=== PATIENT | male | born 1950 | race Caucasian/White ===

== ENCOUNTER 2019-08-23 18:01 | Emergency (ER) | payer BC, MEDICARE ==
[2019-08-23 18:48] LABS: HEMATOCRIT 16.8 % (37.9-51.0); MEAN CORPUSCULAR HEMOGLOBIN 34.8 pg (27.0-33.4); MEAN CORPUSCULAR HGB CONC 36.5 g/dL (32.0-36.0); MEAN CORPUSCULAR VOLUME 95 fl (80-97); RED BLOOD COUNT 1.77 10^6/uL (4.35-5.55); WHITE BLOOD COUNT 8.6 10^3/uL (4.0-10.5)
[2019-08-23 19:01] LABS: APPEARANCE,URINE CLEAR; BILIRUBIN,URINE NEGATIVE (NEGATIVE); COLOR,URINE YELLOW; GLUCOSE, URINE NEGATIVE (NEGATIVE); KETONES,URINE TRACE mg/dL (NEGATIVE); LEUKOCYTE ESTERASE,URINE NEGATIVE (NEGATIVE); NITRITE,URINE NEGATIVE (NEGATIVE); PROTEIN,URINE NEGATIVE (NEGATIVE); URINE SPECIFIC GRAVITY 1.014; UROBILINOGEN,URINE NEGATIVE mg/dL (<2.0)
[2019-08-23 19:03] LABS: ALBUMIN 3.8 g/dL (3.5-5.0); ALCOHOL 44 mg/dL (NONE DETECTED); ALKALINE PHOSPHATASE 51 U/L (38-126); ASPARTATE AMINO TRANSFERASE 17 U/L (17-59); BILIRUBIN,DIRECT 0.4 mg/dL (0.0-0.4); BILIRUBIN,TOTAL 0.9 mg/dL (0.2-1.3); BLOOD UREA NITROGEN 12 mg/dL (7-20); CALCIUM 8.6 mg/dL (8.4-10.2); CARBON DIOXIDE 18 mmol/L (22-30); CHLORIDE 81 mmol/L (98-107); GLUCOSE 108 mg/dL (75-110); POTASSIUM 4.1 mmol/L (3.6-5.0); TOTAL PROTEIN 6.2 g/dL (6.3-8.2)
[2019-08-23 19:04] LABS: ANION GAP 15 (5-19)
[2019-08-23 19:09] LABS: PLATELET COUNT 95 10^3/uL (150-450)
[2019-08-23] MEDS ORDERED: NORMAL SALINE 1000 ML 1,000 ML IV ONE (19:10)
[2019-08-23 19:11] LABS: ABSOLUTE LYMPHOCYTES# (MANUAL) 0.7 10^3/uL (0.5-4.7); ABSOLUTE MONOCYTES # (MANUAL) 0.6 10^3/uL (0.1-1.4); BAND NEUTROPHILS % (MANUAL) 7 % (3-5); BASOPHILS % (MANUAL) 0 % (0-2); EOSINOPHILS % (MANUAL) 0 % (0-6); LYMPHOCYTES % (MANUAL) 8 % (13-45); MONOCYTES % (MANUAL) 7 % (3-13); SEGMENTED NEUTROPHILS % (MAN) 78 % (42-78); TOTAL CELLS COUNTED 100
[2019-08-23 19:14] LABS: ANISOCYTOSIS 3+; OVALOCYTES 1+; PLATELET COMMENT DECREASED; POIKILOCYTOSIS 1+; POLYCHROMASIA SLIGHT; TOXIC GRANULATION SLIGHT
[2019-08-23 19:16] LABS: URINE AMPHETAMINES SCREEN NEGATIVE; URINE BARBITURATES SCREEN NEGATIVE; URINE BENZODIAZEPINES SCREEN NEGATIVE; URINE COCAINE SCREEN NEGATIVE; URINE MARIJUANA (THC) SCREEN NEGATIVE; URINE METHADONE SCREEN NEGATIVE; URINE PHENCYCLIDINE SCREEN NEGATIVE
--- NOTE | 2019-08-23 19:21 | ER Document Report ---
ED General - General Chief Complaint: Weakness Stated Complaint: GENERAL WEAKNESS Time Seen by Provider: 08/23/19 19:08 Primary Care Provider: ANIRUDH PARTIDA MD [Primary Care Provider] - Follow up as needed Mode of Arrival: Ambulatory Information source: Patient, Friend - HPI Onset: Other - over the last several weeks Onset/Duration: Gradual Quality of pain: Achy Severity: Moderate Pain Level: 1 Associated symptoms: Weakness, Other - Dizziness Exacerbated by: Denies Relieved by: Denies Similar symptoms previously: No Recently seen / treated by doctor: No Notes: 69 year old male alcoholic brought to the ER for evaluation of dizziness, weakness, frequent falls over the last several weeks. The patient is not the best historian but he tells me his symptoms are worse with ambulation and standing. The patient has not seen a doctor in years but he he has been told he has in the past is Anemia. The patient says he has needed blood transfusion in the past due to Anemia. The patient drinks daily and he says he had 3-4 drinks the day of his ER visit. The patient denies fevers, chills, sweats, or other infectious symptoms. - Related Data Allergies/Adverse Reactions: No Known Allergies Allergy (Verified 08/23/19 18:45) Past Medical History - General Information source: Patient, Friend Cannot obtain history due to: Altered mental status - Social History Smoking Status: Current Every Day Smoker Frequency of alcohol use: Heavy - daily Drug Abuse: None Lives with: Alone Family History: Reviewed & Not Pertinent Patient has suicidal ideation: No Patient has homicidal ideation: No - Past Medical History Cardiac Medical History: Reports: None Pulmonary Medical History: Reports: None EENT Medical History: Reports: None Neurological Medical History: Reports: None Endocrine Medical History: Reports: None Renal/ Medical History: Reports: None Malignancy Medical History: Reports None GI Medical History: Reports: None Musculoskeletal Medical History: Reports None Skin Medical History: Reports None Psychiatric Medical History: Reports: None Review of Systems - Review of Systems Constitutional: Weakness EENT: No symptoms reported Cardiovascular: No symptoms reported Respiratory: No symptoms reported Gastrointestinal: No symptoms reported Genitourinary: No symptoms reported Male Genitourinary: No symptoms reported Musculoskeletal: Back pain, Joint pain - left shoulder pain Skin: Other - diffuse bruising, diffuse skin tears Hematologic/Lymphatic: Anemia Neurological/Psychological: Confusion, Weakness, Other - Dizziness -: Yes All other systems reviewed and negative Physical Exam - Vital signs Vitals: Resp Pulse Ox 20 97 08/23/19 18:04 08/23/19 18:04 - Notes Notes: GENERAL: Chronically ill appearing, covered in bruises, poorly groomed. HEAD: Atraumatic, normocephalic. EYES: Pupils equal round and reactive to light, extraocular movements intact, sclera anicteric, conjunctiva are normal. ENT: Nares patent, oropharynx clear without exudates. Moist mucous membranes. NECK: Normal range of motion, supple without lymphadenopathy or JVD. LUNGS: Breath sounds clear to auscultation bilaterally and equal. No wheezes rales or rhonchi. HEART: Regular rate and rhythm without murmurs, rubs or gallops. ABDOMEN: Soft, nontender, normoactive bowel sounds. No guarding, no rebound. No masses appreciated. EXTREMITIES: Normal range of motion, no pitting or edema. No clubbing or cyanosis. NEUROLOGICAL: Cranial nerves II through XII grossly intact. Left finger to nose Ataxia. Gait not tested in the ER but patient says he is unsteady on his feet. Normal speech, normal gait. PSYCH: Normal mood, normal affect. SKIN: Patient is covered in bruises and has diffuse skin breakdown. Warm and dry skin. Course - Re-evaluation Re-evalutation: 08/23/19 21:23 Patient was seen and evaluated by me as soon as he was placed in an ER room from triage/waiting room. Patient was brought back immediately after his labs in triaged showed a sodium of 114. Patient has not been seizing. Aside from a sodium of 114 work up in the ER showed he also is anemic with a hemoglobin 6.2 and he has a large right sided subdural hematoma with 7mm of midline shift. The patient has been falling frequently over the last few weeks. The patient is a daily alcohol drinker. It seems likely he fell and hit his head and then developed the low sodium but I cannot say for sure. [facility] was consulted for transfer as soon as the subdural with shift was found on CT. I initially spoke with the Trauma Surgeon who referred the case the Neurosurgery ICU. I am now waiting on a Neurosurgeon to call me back from [facility] who is in the OR. Will empirically treat patient with 1g of Keppra for seizure prophylaxis and will transfuse 2 units of blood. 08/24/19 01:07 [facility] Neurosurgery called me back and after reviewing the patient's images the neurosurgeon agreed that the subdural is likely chronic in nature and that the patient's medical issues (hyponatremia and anemia) should be addressed first. The patient was therefore admitted to a step down bed at [facility] by Dr. Robertson of the Hospitalist service. Patient is an alcoholic so will be on CIWA. - Vital Signs Vital signs: Temp Pulse Resp BP Pulse Ox 98.4 F 87 17 126/77 H 100 08/23/19 22:54 08/23/19 22:54 08/23/19 22:54 08/23/19 22:54 08/23/19 22:54 - Laboratory Result Diagrams: 08/23/19 18:06 08/23/19 18:06 Laboratory results interpreted by me: 08/23/19 08/23/19 08/23/19 18:06 18:06 18:06 RBC 1.77 L Hgb 6.2 L Hct 16.8 L MCH 34.8 H MCHC 36.5 H RDW 23.0 H Plt Count 95 L Band Neutrophils % 7 H Lymphocytes % (Manual) 8 L PT 17.1 H APTT 38.0 H Sodium 114.4 L* Chloride 81 L Carbon Dioxide 18 L Creatinine 0.43 L Total Protein 6.2 L Urine Ketones Crossmatch 08/23/19 08/23/19 08/23/19 18:13 20:20 20:50 RBC Hgb Hct MCH MCHC RDW Plt Count Band Neutrophils % Lymphocytes % (Manual) PT APTT Sodium Chloride Carbon Dioxide Creatinine Total Protein Urine Ketones TRACE H Crossmatch See Detail See Detail - Diagnostic Test Radiology reviewed: Image reviewed, Reports reviewed - EKG Interpretation by Me EKG shows normal: Sinus rhythm, [place], Intervals, ST-T Waves Rate: Normal Additional EKG results interpreted by me: 08/23/19 21:28 slightly widened QRS consistent with intraventricular conduction delay Critical Care Note - Critical Care Note Total time excluding time spent on procedures (mins): 35 Discharge - Discharge Clinical Impression: Hyponatremia, Subdural hematoma Anemia Qualifiers: Anemia type: unspecified type Qualified Code(s): D64.9 - Anemia, unspecified Condition: Stable Disposition: [facility] Admitting Provider: Dr. Robertson Referrals: ANIRUDH PARTIDA MD [Primary Care Provider] - Follow up as needed
[2019-08-23 19:26] LABS: HEMOGLOBIN 6.2 g/dL (13.5-17.0)
[2019-08-23] MEDS ORDERED: NORMAL SALINE 250 ML IV PRN ×2 (19:35)
[2019-08-23 19:50] LABS: INTERNATIONAL RATION (INR) 1.38; PROTHROMBIN TIME 17.1 SEC (11.4-15.4)
--- NOTE | 2019-08-23 20:06 | RADIOLOGY REPORT (SQ) ---
EXAM DESCRIPTION: CT HEAD WITHOUT COMPLETED DATE/TIME: 08/23/2019 7:50 pm REASON FOR STUDY: altered mental status. frequent falls COMPARISON: None. TECHNIQUE: Axial images acquired through the brain without intravenous contrast. Images reviewed wi th bone, brain and subdural windows. Additional sagittal and coronal reconstructions were generated. Images stored on PACS. All CT scanners at this facility use dose modulation, iterative reconstruction, and/or weight based d osing when appropriate to reduce radiation dose to as low as reasonably achievable (ALARA). [facility]: Dose Right [facility]: CareDose [facility]: Dose Right [facility]: Teradose 4D [facility]: Smart [employer] RADIATION DOSE: CT Rad equipment meets quality standard of care and radiation dose reduction techniq ues were employed. CTDIvol: 53.2 mGy. DLP: 1097 mGy-cm. mGy. LIMITATIONS: None. FINDINGS: VENTRICLES: Normal size and contour. CEREBRUM: No masses. No hemorrhage. No midline shift. No evidence for acute infarction. Normal gra y/white matter differentiation. No areas of low density in the white matter. CEREBELLUM: No masses. No hemorrhage. No alteration of density. No evidence for acute infarction. EXTRAAXIAL SPACES: Right side fluid collection that appears chronic. There appear appear to be some peripheral calcifications. There are 2 areas were this appears to be epidural. This is in the front al region and in the parietal region. 7 mm midline shift on image 22. ORBITS AND GLOBE: No intra- or extraconal masses. Normal contour of globe without masses. CALVARIUM: No fracture. PARANASAL SINUSES: No fluid or mucosal thickening. SOFT TISSUES: No mass or hematoma. OTHER: No other significant finding. IMPRESSION: Chronic appearing right-sided fluid collection that appears to be subdural with possible loculations. There are calcifications peripherally. There are areas of slightly increased density. Cannot exclude a chronic process with a slight acute component. EVIDENCE OF ACUTE STROKE: NO. COMMENT: Pertinent findings on the imaging study reported as a CRITICAL RESULT to JULIAN monaco t20:00 on 08/23/2019. Category of Critical Result: Acute on chronic subdural hematoma. Quality ID # 436: Final reports with documentation of one or more dose reduction techniques (e.g., Au tomated exposure control, adjustment of the mA and/or kV according to patient size, use of iterative reconstruction technique) TECHNICAL DOCUMENTATION: JOB ID: [id number] 2010 [employer]- All Rights Reserved Reading location - IP/workstation name: [email or web address]
--- NOTE | 2019-08-23 20:27 | RADIOLOGY REPORT (SQ) ---
EXAM DESCRIPTION: XR CHEST 1 VIEW COMPLETED DATE/TME: 08/23/2019 19:33 CLINICAL HISTORY: 69 years, Male, eval for pneumonia COMPARISON: None. NUMBER OF VIEWS: Single TECHNIQUE: AP portable upright LIMITATIONS: None. FINDINGS: 1953 hours Cardiomediastinal silhouette is enlarged. The lungs are grossly clear. No effusion. No pneumothorax. Right shoulder total prosthesis. Left shoulder severe arthropathy IMPRESSION: No active disease copyright 2010 [employer]- All Rights Reserved
[2019-08-23] MEDS ORDERED: LEVETIRACETAM 1000 MG/NACL-ISO 1,000 MG/100 ML RTUPB IV ONE (21:22)
[2019-08-23] MEDS: NORMAL SALINE 1000 ML 1,000 ML with POTASSIUM CHLORIDE 20 MEQ, MAGNESIUM SULFATE 8 MEQ,... IV SCH ×5 (21:22)
--- NOTE | 2019-08-23 22:22 | EKG REPORT ---
SEVERITY:- ABNORMAL ECG - SINUS RHYTHM NONSPECIFIC INTRAVENTRICULAR CONDUCTION DELAY : Confirmed by: Oumar Keys MD 23-Aug-2019 22:21:51
[2019-08-24 08:09] LABS: HEMATOCRIT 22.6 % (37.9-51.0); HEMOGLOBIN 8.1 g/dL (13.5-17.0); MEAN CORPUSCULAR HEMOGLOBIN 33.1 pg (27.0-33.4); MEAN CORPUSCULAR HGB CONC 35.9 g/dL (32.0-36.0); MEAN CORPUSCULAR VOLUME 92 fl (80-97); RED BLOOD COUNT 2.44 10^6/uL (4.35-5.55); RED CELL DISTRIBUTION WIDTH 21.2 % (11.5-14.0); WHITE BLOOD COUNT 5.1 10^3/uL (4.0-10.5)
[2019-08-24 08:24] LABS: PLATELET COUNT 69 10^3/uL (150-450)
[2019-08-24 08:26] LABS: ABSOLUTE LYMPHOCYTES# (MANUAL) 0.6 10^3/uL (0.5-4.7); ABSOLUTE MONOCYTES # (MANUAL) 0.2 10^3/uL (0.1-1.4); BAND NEUTROPHILS % (MANUAL) 5 % (3-5); BASOPHILS % (MANUAL) 0 % (0-2); EOSINOPHILS % (MANUAL) 0 % (0-6); LYMPHOCYTES % (MANUAL) 12 % (13-45); METAMYELOCYTES % (MANUAL) 1 % (0-1); MONOCYTES % (MANUAL) 3 % (3-13); SEGMENTED NEUTROPHILS % (MAN) 79 % (42-78); TOTAL CELLS COUNTED 100
[2019-08-24 08:29] LABS: ANISOCYTOSIS 3+; OVALOCYTES 2+; PLATELET COMMENT DECREASED; POIKILOCYTOSIS 1+; POLYCHROMASIA SLIGHT; TEAR DROP CELLS SLIGHT; TOXIC GRANULATION 2+
[2019-08-24 08:52] LABS: ALBUMIN 3.5 g/dL (3.5-5.0); ALKALINE PHOSPHATASE 43 U/L (38-126); ANION GAP 11 (5-19); ASPARTATE AMINO TRANSFERASE 14 U/L (17-59); BILIRUBIN,DIRECT 0.4 mg/dL (0.0-0.4); BILIRUBIN,TOTAL 1.6 mg/dL (0.2-1.3); BLOOD UREA NITROGEN 12 mg/dL (7-20); CALCIUM 8.4 mg/dL (8.4-10.2); CARBON DIOXIDE 22 mmol/L (22-30); CHLORIDE 94 mmol/L (98-107); GLUCOSE 111 mg/dL (75-110); TOTAL PROTEIN 5.8 g/dL (6.3-8.2)
--- NOTE | 2019-08-24 18:38 | ER Document Report ---
Doctor's Note Notes: 08/24/19 18:37 Patient reexamined approximate 6:30 PM. Patient is resting comfortably in the room watching TV and eating dinner. He states he has no complaints at this time. Patient is awake alert and conversant. He is in no distress. Skin is warm and dry. Heart is regular rate and rhythm. Lungs are clear to auscult ation.
[2019-08-24] MEDS: NORMAL SALINE 1000 ML 1,000 ML with POTASSIUM CHLORIDE 20 MEQ, MAGNESIUM SULFATE 8 MEQ,... IV SCH ×5 (19:32)
[2019-08-25 06:54] LABS: ALBUMIN 3.1 g/dL (3.5-5.0); ALKALINE PHOSPHATASE 136 U/L (38-126); ANION GAP 6 (5-19); ASPARTATE AMINO TRANSFERASE 54 U/L (17-59); BILIRUBIN,DIRECT 0.8 mg/dL (0.0-0.4); BILIRUBIN,TOTAL 1.9 mg/dL (0.2-1.3); BLOOD UREA NITROGEN 11 mg/dL (7-20); CALCIUM 7.9 mg/dL (8.4-10.2); CARBON DIOXIDE 21 mmol/L (22-30); CHLORIDE 100 mmol/L (98-107); GLUCOSE 103 mg/dL (75-110); TOTAL PROTEIN 5.1 g/dL (6.3-8.2)
[2019-08-25 08:15] LABS: HEMATOCRIT 22.7 % (37.9-51.0); HEMOGLOBIN 8.2 g/dL (13.5-17.0); MEAN CORPUSCULAR HEMOGLOBIN 33.1 pg (27.0-33.4); MEAN CORPUSCULAR VOLUME 92 fl (80-97); RED BLOOD COUNT 2.47 10^6/uL (4.35-5.55); RED CELL DISTRIBUTION WIDTH 21.4 % (11.5-14.0); WHITE BLOOD COUNT 4.9 10^3/uL (4.0-10.5)
[2019-08-25 08:44] LABS: PLATELET COUNT 66 10^3/uL (150-450)
[2019-08-25 08:47] LABS: ABSOLUTE LYMPHOCYTES# (MANUAL) 0.5 10^3/uL (0.5-4.7); ABSOLUTE MONOCYTES # (MANUAL) 0.3 10^3/uL (0.1-1.4); BAND NEUTROPHILS % (MANUAL) 5 % (3-5); BASOPHILS % (MANUAL) 0 % (0-2); EOSINOPHILS % (MANUAL) 0 % (0-6); LYMPHOCYTES % (MANUAL) 7 % (13-45); METAMYELOCYTES % (MANUAL) 2 % (0-1); MONOCYTES % (MANUAL) 6 % (3-13); NUCLEATED RED BLOOD CELLS 1 /100 WBC (0); SEGMENTED NEUTROPHILS % (MAN) 76 % (42-78); TOTAL CELLS COUNTED 100
[2019-08-25 08:48] LABS: ANISOCYTOSIS 3+; OVALOCYTES 2+; PLATELET COMMENT DECREASED; POIKILOCYTOSIS 1+; POLYCHROMASIA 1+; SCHISTOCYTES SLIGHT; TOXIC GRANULATION 1+; TOXIC VACUOLATION PRESENT
[2019-08-25 08:49] LABS: MYELOCYTES % (MANUAL) 1 % (0)
--- NOTE | 2019-08-25 11:29 | ER Document Report ---
Doctor's Note Notes: 08/25/19 11:28 This man is seen for follow-up today eating and drinking well with stable vital signs. He has very minimal tremor present. His sodium is come up to 127. He remains on the transfer list provided but still does not have a bed. I spoke with the patient and his family. Plan at this time is to ask the hospitalist service to consult for admission here until bed is available and to have them manage his ongoing hyponatremia.
[2019-08-25] MEDS ORDERED: HYDRALAZINE HCL INJ/PF 20 MG/1 ML SDV IV PRN (12:39)
[2019-08-25] MEDS ORDERED: LORAZEPAM INJ 2 MG/1 ML VIAL IV PRN (12:40)
[2019-08-25] MEDS: LISINOPRIL 5 MG TABLET PO SCH (13:18)
[2019-08-25] MEDS ORDERED: GUAIFENESIN SYRP 200 MG/10 ML UDC PO PRN (13:24)
[2019-08-25] MEDS ORDERED: LEVALBUTEROL HCL NEB 1.25 MG/3 ML AMPUL NEB PRN (13:24)
--- NOTE | 2019-08-25 13:43 | PDOC CONSULTATION ---
Consultation Consult Date: 08/25/19 Attending physician:: BARRIE LOREDO Provider Consulted: GINGER NIXON History of Present Illness Admission Date/PCP: ANIRUDH PARTIDA MD Patient complains of: Fall with head injury History of Present Illness: DOT L[place]IS is a 69 year old male with a past medical history significant for alcohol dependence with continuous use, prior head injury (evaluated at [facility], [facility]; requesting records), frequent falls, and depression. Patient presented to the emergency department on 08/23/2019 with report of increased frequency of falls with head injury. Evaluation by the emergency department provider revealed anemia with a hemoglobin of 6.2 (now status post 2 units PRBC), persistent thrombocytopenia, INR 1.38, hyponatremia with a sodium of 114 (has trended up to 127), negative urinalysis, negative UDS, serum EtOH 44. EKG demonstrated NSR. CXR benign. Notably, head CT revealed a subdural hematoma with a 7 mm midline shift with acute on chronic appearance per radiologist report. Patient's family members note that since his fall he has had personality changes (increased agitation, flat affect, and confusion). Motor/sensory appears to be intact. Patient is noted to be alert and oriented x4. Though, with flat affect, frequent appearance of disengaging from conversation and and needing to be recalled back to the conversation. He does follow simple commands but with sluggish answers and responses. Patient is currently awaiting transfer to [facility]. The hospitalist team has been requested to consult for management of anticipated alcohol withdrawal and hyponatremia while awaiting transfer. Past Medical History Cardiac Medical History: Reports: None Pulmonary Medical History: Reports: None EENT Medical History: Reports: None Neurological Medical History: Reports: Other - Prior TBI Endocrine Medical History: Reports: None Renal/ Medical History: Reports: None Malignancy Medical History: Reports: None GI Medical History: Reports: None Musculoskeltal Medical History: Reports: None Skin Medical History: Reports: None Psychiatric Medical History: Reports: Alcohol Dependency, Depression Traumatic Medical History: Reports: None Hematology: Reports: Anemia Infectious Medical History: Reports: None Past Surgical History Past Surgical History: Reports: None Social History Information Source: Patient, Relative Lives with: Alone Smoking Status: Never Smoker Frequency of Alcohol Use: Heavy Hx Recreational Drug Use: No Drugs: None Hx Prescription Drug Abuse: No Family History Family History: Reviewed & Not Pertinent Parental Family History Reviewed: Yes Children Family History Reviewed: Yes Sibling(s) Family History Reviewed.: Yes Medication/Allergy Allergies/Adverse Reactions: No Known Allergies Allergy (Verified 08/23/19 18:45) Review of Systems Constitutional: ABSENT: chills, fever(s), headache(s), weight gain, weight loss Eyes: ABSENT: visual disturbances Ears: ABSENT: hearing changes Cardiovascular: ABSENT: chest pain, dyspnea on exertion, edema, orthropnea, palpitations Respiratory: PRESENT: cough. ABSENT: hemoptysis Gastrointestinal: ABSENT: abdominal pain, constipation, diarrhea, hematemesis, hematochezia, nausea, vomiting Genitourinary: ABSENT: dysuria, hematuria Musculoskeletal: ABSENT: joint swelling Integumentary: ABSENT: rash, wounds Neurological: PRESENT: frequent falls, lack of coordination, memory loss, weakness. ABSENT: abnormal gait, abnormal speech, confusion, dizziness, focal weakness, syncope Psychiatric: PRESENT: depression. ABSENT: anxiety, homidical ideation, suicidal ideation Endocrine: ABSENT: cold intolerance, heat intolerance, polydipsia, polyuria Hematologic/Lymphatic: ABSENT: easy bleeding, easy bruising Physical Exam Vital Signs: Temp Pulse Resp BP Pulse Ox 97.8 F 73 18 134/69 H 100 08/25/19 08:01 08/25/19 00:11 08/25/19 13:01 08/25/19 13:01 08/25/19 13:01 Intake & Output 08/24/19 08/25/19 08/26/19 06:59 06:59 06:59 Intake Total 2773 1623 Output Total 1000 450 Balance 1773 1173 Weight 72.575 kg General appearance: PRESENT: no acute distress, cooperative, well-developed, well-nourished Head exam: PRESENT: normocephalic, other - L-shaped left forehead laceration measuring 1 x 0.5 cm. Ecchymosis over left brow. Eye exam: PRESENT: conjunctiva pink, EOMI, PERRLA. ABSENT: scleral icterus Ear exam: PRESENT: normal external ear exam Mouth exam: PRESENT: moist, tongue midline Neck exam: ABSENT: carotid bruit, JVD, lymphadenopathy, thyromegaly Respiratory exam: PRESENT: rhonchi, symmetrical, unlabored. ABSENT: rales, wheezes Cardiovascular exam: PRESENT: RRR, +S1, +S2. ABSENT: diastolic murmur, rubs, systolic murmur Pulses: PRESENT: normal dorsalis pedis pul Vascular exam: PRESENT: normal capillary refill GI/Abdominal exam: PRESENT: normal bowel sounds, soft. ABSENT: distended, guarding, mass, organolmegaly, rebound, tenderness Rectal exam: PRESENT: deferred Extremities exam: ABSENT: calf tenderness, clubbing, full ROM - Limited abduction left arm (chronic), pedal edema Neurological exam: PRESENT: alert, awake, oriented to person, oriented to place, oriented to time, oriented to situation, CN II-XII grossly intact, other - Sluggish verbal responses and physical movements. Left glass technologist 4/5.. ABSENT: motor sensory deficit Psychiatric exam: PRESENT: depressed, flat affect. ABSENT: homicidal ideation, suicidal ideation Skin exam: PRESENT: dry, warm. ABSENT: cyanosis, rash Results Laboratory Results: 08/25/19 08:00 08/25/19 06:27 08/25/19 08/25/19 08/25/19 06:27 06:27 08:00 WBC Cancelled 4.9 RBC Cancelled 2.47 L Hgb Cancelled 8.2 L Hct Cancelled 22.7 L MCV Cancelled 92 MCH Cancelled 33.1 MCHC Cancelled 36.0 RDW Cancelled 21.4 H Plt Count Cancelled 66 L Seg Neutrophils % Cancelled Not Reportable Sodium 127.1 L Potassium 4.0 Chloride 100 Carbon Dioxide 21 L Anion Gap 6 BUN 11 Creatinine 0.39 L Est GFR ( Amer) > 60 Glucose 103 Calcium 7.9 L Total Bilirubin 1.9 H AST 54 Alkaline Phosphatase 136 H Total Protein 5.1 L Albumin 3.1 L 08/23/19 18:06 Creatine Kinase 47 L Impressions: Head CT 08/23/19 19:21 IMPRESSION: Chronic appearing right-sided fluid collection that appears to be subdural with possible loculations. There are calcifications peripherally. There are areas of slightly increased density. Cannot exclude a chronic process with a slight acute component. EVIDENCE OF ACUTE STROKE: NO. Chest X-Ray 08/23/19 19:33 IMPRESSION: No active disease copyright 2010 [facility]- All Rights Reserved Assessment and Plan - Diagnosis (1) Subdural hematoma Is this a current diagnosis for this admission?: Yes Plan: Acute on chronic; prior history of TBI resulting in admission to [facility]. Prior medical records have been requested. [facility]; on wait list for room assignment. Continue Keppra 500 mg twice daily. Fall, seizure precautions. (2) Alcohol dependence Qualifiers: Substance use status: with intoxication Complication of substance-induced condition: uncomplicated Qualified Code(s): F10.220 - Alcohol dependence with intoxication, uncomplicated Is this a current diagnosis for this admission?: Yes Plan: Patient admitted with a serum alcohol of 44. Admits to drinking 3-4 beers nightly and hard liquor of unknown quantity. Patient reports he has been a heavy drinker for several years. He denies prior difficulty with alcohol withdrawal or seizures. Cessation encouraged. Daily multivitamin, thiamine, and folic acid supplementation. Valium 2 mg p.o. every 6 hours. IV Ativan as needed anxiety, agitation, withdrawal symptoms. Fall, seizure, aspiration precautions. (3) Anemia Qualifiers: Anemia type: unspecified type Qualified Code(s): D64.9 - Anemia, unspecified Is this a current diagnosis for this admission?: Yes Plan: Patient received 2 units PRBC Hgb now stable at 8.2. Continue to monitor and transfuse as necessary. Holding DVT prophylaxis secondary to subdural hematoma and thrombocytopenia. (4) Hyponatremia Is this a current diagnosis for this admission?: Yes Plan: Trending up. Free water fluid restriction of 1.5 L daily. Liberalize dietary sodium intake; regular diet. Serial chemistries. Seizure precautions. (5) Bronchitis Is this a current diagnosis for this admission?: Yes Plan: Patient reports that he was being treated for bronchitis prior to admission. He states that he took the first dose of the Z-Anthony. He He is noted to have slight rhonchi on exam. Maintaining oxygen saturations on room air. We will complete course of azithromycin. As needed Xopenex. Supplemental oxygen as needed maintain saturations. Pulmonary toilet with incentive spirometer. - Time Time Spent with patient: 35 or more minutes Medications reviewed and adjusted accordingly: Yes [facility]tic[facility]ated [facility] Within: when bed available
[2019-08-25 13:49] LABS: INTERNATIONAL RATION (INR) 1.33; PROTHROMBIN TIME 16.6 SEC (11.4-15.4)
--- NOTE | 2019-08-25 14:22 | RADIOLOGY REPORT (SQ) ---
EXAM DESCRIPTION: CT HEAD WITHOUT COMPLETED DATE/TIME: 08/25/2019 1:58 pm REASON FOR STUDY: f/u subdural hematoma R53.1 WEAKNESS S06.5X9A TRAUM SUBDR HEM W LOC OF UNSP DURA TION, INIT T14.8XXA OTHER INJURY OF UNSPECIFIED BODY REGION, INITIAL EN COMPARISON: 08/23/2019. TECHNIQUE: Axial images acquired through the brain without intravenous contrast. Images reviewed wi th bone, brain and subdural windows. Additional sagittal and coronal reconstructions were generated. Images stored on PACS. All CT scanners at this facility use dose modulation, iterative reconstruction, and/or weight based d osing when appropriate to reduce radiation dose to as low as reasonably achievable (ALARA). [facility]: Dose Right [facility]: CareDose [facility]: Dose Right [facility]: Teradose 4D [facility]: [employer] RADIATION DOSE: CT Rad equipment meets quality standard of care and radiation dose reduction techniq ues were employed. CTDIvol: 53.2 mGy. DLP: 1070 mGy-cm. mGy. LIMITATIONS: None. FINDINGS: VENTRICLES: Prominent. CEREBRUM: No masses. No hemorrhage. No midline shift. Areas of low density in the white matter mos t likely due to chronic micro-vascular ischemic change. No evidence for acute infarction. CEREBELLUM: No masses. No hemorrhage. No alteration of density. No evidence for acute infarction. EXTRAAXIAL SPACES: Again seen is mixed density fluid collection overlying the right cerebral hemisphe re. Scattered peripheral calcification. Overall in appearance. Mild midline shift unchanged. ORBITS AND GLOBE: No intra- or extraconal masses. Normal contour of globe without masses. CALVARIUM: No fracture. PARANASAL SINUSES: No fluid or mucosal thickening. SOFT TISSUES: No mass or hematoma. OTHER: No other significant finding. IMPRESSION: NO CHANGE IN THE MIXED DENSITY FLUID COLLECTION OVERLYING THE RIGHT CEREBRAL HEMISPHERE WITH PERIPHERAL CALCIFICATION. MILD CHRONIC CHANGES OF ATROPHY AND MICROVASCULAR ISCHEMIA. NO ACUTE PROCESS. EVIDENCE OF ACUTE STROKE: NO. TECHNICAL DOCUMENTATION: JOB ID: [id number] Quality ID # [id number]: Final reports with documentation of one or more dose reduction techniques (e.g., Au tomated exposure control, adjustment of the mA and/or kV according to patient size, use of iterative reconstruction technique) 2010 [employer]- All Rights Reserved Reading location - IP/workstation name: [email or web address]
[2019-08-25] MEDS: AZITHROMYCIN 250 MG TABLET PO SCH (14:41)
[2019-08-25 16:35] LABS: ANION GAP 11 (5-19); BLOOD UREA NITROGEN 12 mg/dL (7-20); CALCIUM 8.1 mg/dL (8.4-10.2); CARBON DIOXIDE 18 mmol/L (22-30); CHLORIDE 97 mmol/L (98-107); GLUCOSE 105 mg/dL (75-110)
[2019-08-26] MEDS: LEVETIRACETAM 500 MG TABLET PO SCH ×2 (00:49→10:24)
[2019-08-26 07:10] LABS: HEMATOCRIT 25.4 % (37.9-51.0); MEAN CORPUSCULAR HEMOGLOBIN 33.2 pg (27.0-33.4); MEAN CORPUSCULAR HGB CONC 35.4 g/dL (32.0-36.0); MEAN CORPUSCULAR VOLUME 94 fl (80-97); RED BLOOD COUNT 2.72 10^6/uL (4.35-5.55); WHITE BLOOD COUNT 6.8 10^3/uL (4.0-10.5)
[2019-08-26 07:30] LABS: ANION GAP 10 (5-19); BLOOD UREA NITROGEN 11 mg/dL (7-20); CALCIUM 8.2 mg/dL (8.4-10.2); CARBON DIOXIDE 21 mmol/L (22-30); CHLORIDE 96 mmol/L (98-107); GLUCOSE 100 mg/dL (75-110); POTASSIUM 3.9 mmol/L (3.6-5.0)
[2019-08-26 08:00] LABS: PLATELET COUNT 69 10^3/uL (150-450)
[2019-08-26] MEDS ORDERED: FOLIC ACID 1 MG TABLET PO SCH (10:00)
[2019-08-26] MEDS ORDERED: THIAMINE HCL 100 MG TABLET PO SCH (10:00)
[2019-08-26] MEDS: AZITHROMYCIN 250 MG TABLET PO SCH (10:24)
[2019-08-26] MEDS: LISINOPRIL 5 MG TABLET PO SCH (10:27)
[2019-08-26 11:37] LABS: HEPATITS B SURFACE ANTIGEN Negative (Negative)
[2019-08-26 12:38] LABS: HEPATITIS C VIRUS ANTIBODY <0.1 s/co ratio (0.0-0.9)
--- NOTE | 2019-08-26 12:58 | PDOC PROGRESS REPORT ---
Subjective Progress Note for:: 08/26/19 Subjective:: DOT LOUIS is a 69 year old male with a past medical history significant for alcohol dependence with continuous use, prior head injury, frequent falls, and depression who presented to the emergency department on 08/23/2019 with complaint of frequent falls, alcohol intoxication, and head injury. The hospital service was consulted on 08/25/2019 for management of hyponatremia and alcohol withdrawal. Patient was seen on morning rounds with his family members present. He was found resting in bed, comfortably, on room air. He is oriented to self, though with delayed answer. He states the year is 2011, [place], knows that he is in a hospital but is unable to state the city. This is slightly more confused with increased delay in responses from yesterday. However, he otherwise appears more alert and engaged in conversation and interactions with me. He denies fever, chills, chest pain, palpitations, dyspnea, cough, abdominal pain, nausea vomiting diarrhea. He further denies visual and auditory hallucinations, sweats, anxiety and headaches. Patient has no questions or concerns at this time. Reviewed patient's CT results and records received from [facility] with patient and family. They remain interested and transfer to [facility] for neurology evaluation. No concerns per nursing. Reason For Visit: GENERAL WEAKNESS Physical Exam Vital Signs: Temp Pulse Resp BP Pulse Ox 98.1 F 73 18 104/61 99 08/26/19 06:28 08/25/19 00:11 08/26/19 11:01 08/26/19 10:23 08/26/19 11:01 Intake & Output 08/25/19 08/26/19 08/27/19 06:59 06:59 06:59 Intake Total 1623 Output Total 450 Balance 1173 General appearance: PRESENT: no acute distress, cooperative, well-developed, well-nourished Head exam: PRESENT: normocephalic, other - L-shaped left forehead laceration measuring 1 x 0.5 cm. Ecchymosis over left brow.. ABSENT: atraumatic Eye exam: PRESENT: conjunctiva pink, EOMI, PERRLA. ABSENT: scleral icterus Ear exam: PRESENT: normal external ear exam Mouth exam: PRESENT: moist, tongue midline Respiratory exam: PRESENT: clear to auscultation kat, symmetrical, unlabored. ABSENT: rales, rhonchi, wheezes Cardiovascular exam: PRESENT: RRR, +S1, +S2. ABSENT: diastolic murmur, rubs, systolic murmur Vascular exam: PRESENT: normal capillary refill Extremities exam: ABSENT: calf tenderness, clubbing, full ROM - Limited abduction left arm (chronic), pedal edema Musculoskeletal exam: PRESENT: ambulatory Neurological exam: PRESENT: alert, awake, oriented to person, oriented to place - limited, oriented to situation, CN II-XII grossly intact, other - Increased disorientation from yesterday; improved alertness. Remains sluggish w/ movements and responses.. ABSENT: oriented to time, motor sensory deficit Psychiatric exam: PRESENT: appropriate affect, normal mood. ABSENT: homicidal ideation, suicidal ideation Skin exam: PRESENT: dry, warm, other - numerous scattered abrasions and skin tears. ABSENT: cyanosis, intact, rash Results Laboratory Results: 08/26/19 06:38 08/26/19 06:38 08/25/19 08/25/19 08/26/19 13:33 16:00 06:38 WBC RBC Hgb Hct MCV MCH MCHC RDW Plt Count Sodium 125.9 L 127.1 L Potassium 4.0 3.9 Chloride 97 L 96 L Carbon Dioxide 18 L 21 L Anion Gap 11 10 BUN 12 11 Creatinine 0.40 L 0.41 L Est GFR ( Amer) > 60 > 60 Glucose 105 100 Calcium 8.1 L 8.2 L Ammonia < 8.7 L 08/26/19 06:38 WBC 6.8 RBC 2.72 L Hgb 9.0 L Hct 25.4 L MCV 94 MCH 33.2 MCHC 35.4 RDW 22.0 H Plt Count 69 L Sodium Potassium Chloride Carbon Dioxide Anion Gap BUN Creatinine Est GFR ( Amer) Glucose Calcium Ammonia 08/23/19 18:06 Creatine Kinase 47 L Impressions: Chest X-Ray 08/23/19 19:33 IMPRESSION: No active disease copyright 2011 [employer]- All Rights Reserved Head CT 08/25/19 00:00 IMPRESSION: NO CHANGE IN THE MIXED DENSITY FLUID COLLECTION OVERLYING THE RIGHT CEREBRAL HEMISPHERE WITH PERIPHERAL CALCIFICATION. MILD CHRONIC CHANGES OF ATROPHY AND MICROVASCULAR ISCHEMIA. NO ACUTE PROCESS. EVIDENCE OF ACUTE STROKE: NO. Assessment and Plan - Diagnosis (1) Subdural hematoma Is this a current diagnosis for this admission?: Yes Plan: Acute on chronic; prior history of TBI resulting in admission to [facility]. Received CT reports from [facility]: (05/18/17) 1. Right forehead scalp hematoma. 2. Large right lateral frontal parietal convexity mixed density subdural hematoma with right hemispheric mass- effect resulting in 7 mm right to left midline shift. (05/19/17) no significant change in the right lateral frontal parietal convexity mixed density subdural hematoma with 7 mm of right to left subfalcine herniation. CT imagining at our facility is consistent w/ prior findings. Discussed with patient and family members; they remain interested in transfer to [facility]; on wait list for room assignment. Will plan on repeat CT tomorrow with phone consultation follow up if patient remains at [facility] overnight. Continue Keppra 500 mg twice daily. Fall, seizure precautions. (2) Alcohol dependence Qualifiers: Substance use status: with intoxication Complication of substance-induced condition: uncomplicated Qualified Code(s): F10.220 - Alcohol dependence with intoxication, uncomplicated Is this a current diagnosis for this admission?: Yes Plan: Patient admitted with a serum alcohol of 44. Admits to drinking 3-4 beers nightly and hard liquor of unknown quantity. Patient reports he has been a heavy drinker for several years. He denies prior difficulty with alcohol withdrawal or seizures. Cessation encouraged. Daily multivitamin, thiamine, and folic acid supplementation. IV Ativan as needed anxiety, agitation, withdrawal symptoms. Fall, seizure, aspiration precautions. (3) Anemia Qualifiers: Anemia type: unspecified type Qualified Code(s): D64.9 - Anemia, unspecified Is this a current diagnosis for this admission?: Yes Plan: Patient received 2 units PRBC Hgb now stable at 8.2. Continue to monitor and transfuse as necessary. Holding DVT prophylaxis secondary to subdural hematoma and thrombocytopenia. (4) Hyponatremia Is this a current diagnosis for this admission?: Yes Plan: Trending up. Free water fluid restriction of 1.5 L daily. Liberalize dietary sodium intake; regular diet. Serial chemistries. Seizure precautions. (5) Bronchitis Is this a current diagnosis for this admission?: Yes Plan: Patient reports that he was being treated for bronchitis prior to admission. He states that he took the first dose of the Z-Anthony. He He is noted to have slight rhonchi on exam. Maintaining oxygen saturations on room air. We will complete course of azithromycin. As needed Xopenex. Supplemental oxygen as needed maintain saturations. Pulmonary toilet with incentive spirometer. - Time Time Spent with patient: 35 or more minutes Medications reviewed and adjusted accordingly: Yes [facility]tic[facility]ated [facility]: when bed available
[2019-08-26 13:08] LABS: PATH REVIEW PATHOLOGIST REVIEWED
--- NOTE | 2019-08-26 16:33 | PSYCHOLOGICAL NOTE ---
Psych Note - Psych Note Date seen by psych provider: 08/26/19 Time seen by psych provider: 14:45 Psych Note: Patient is a 69-year-old male who presents to ED via EMS with medical concerns. Consult was placed due to concerns for ETOH abuse and depression. Patient has a history of TBI. Patient was engaged with clinician. Patient states, "I am depressed" and when asked to elaborate, patient states because his dog, CHRIST, is in a kennel while he receives medical treatment. Patient states he misses his dog. Clinician asked open ended questions in order to elicit deeper conversation. Patient states he will be compliant with the treatment his care team recommends. Patient states his last drink was 5 days ago. When asked about withdrawals and cravings, patient responded, "I'm done with that, baby." Patient denied withdrawals and cravings. Patient declined mental health and/or substance abuse treatment. Patient declined the need for medication management. Patient is alert and oriented to person, place, time and circumstance. Mood is normal with congruent affect. Patient denies suicidal and homicidal ideations. Delusions are absent and behavior is congruent with an intact reality based presentation (i.e., organized and linear through processes). There is no observed behavior that suggests patient is responding to internal stimuli. Patient is able to engage in organized, rational thought processes. Patient is able to express needs and wants in a logical manner. Patient denies current auditory and visual hallucinations. Eye contact is appropriate. Conversational speech is within normal rate, tone, and prosody. Intellectual ability appears to be within average range. Attention and concentration are good. Insight, judgment and impulse control are currently poor. Impression/Plan: Patient is cleared from acute psychiatric services. Patient denies suicidal and homicidal ideations. There is no observed behavior that suggests patient is responding to internal stimuli. Patient engaged in organized, rational, linear thought processes and was able to express needs and wants in a logical manner. Patient's head CT conducted on 08/25/2019 contains language suggestive of neurodegenerative processes. Patient declined mental health services and resources. Dr. Bronson was consulted on the care and management of this patient; attending physician is in agreement with recommendations and disposition.
[2019-08-26 19:33] VITALS: BP 109/56
[2019-08-27] MEDS ORDERED: LISINOPRIL 5 MG TABLET PO SCH (10:00)
== END 2019-08-26 20:13 | disposition short-term general hospital (02) ==
LOC: ER 18:01
DX: S06.5X9A Traumatic subdural hemorrhage with loss of consciousness of unspecified duration, initial encounter (principal); T14.8XXA Other injury of unspecified body region, initial encounter; X58.XXXA Exposure to other specified factors, initial encounter; D64.9 Anemia, unspecified; E87.1 Hypo-osmolality and hyponatremia; I45.9 Conduction disorder, unspecified; F10.229 Alcohol dependence with intoxication, unspecified; Y90.2 Blood alcohol level of 40-59 mg/100 ml; F17.200 Nicotine dependence, unspecified, uncomplicated; M54.9 Dorsalgia, unspecified; M25.512 Pain in left shoulder; R41.0 Disorientation, unspecified; R53.1 Weakness; R42 Dizziness and giddiness
CPT/HCPCS: 93005; 99285; 96361; 96365; 96366; 96368; 86900; 86901; 36415; 36430; 86850; 80307 ×2; 82140; 82550; 83735; 85025; 85027; 85610; 85730; 80048; 80053; 81001; 86920; 80074; 71045; 70450; 93010; P9016; A9270 ×5; J3475 ×2; J3480 ×2; J3411 ×2; J7030 ×2; J7050; J3490 ×2; J1953